=== PATIENT | male | born 1965 | race Caucasian/White ===

== ENCOUNTER 2016-11-20 20:42 | Emergency (ER) | payer OTHER ==
[~2016-11-20] VITALS: Ht 180.3 cm; Wt 99.8 kg
[2016-11-20 20:51] VITALS: BP 138/86
[2016-11-20 21:20] LABS: ABSOLUTE BASOPHIL COUNT 0.1 /CUMM (0.0-0.2); ABSOLUTE EOSINOPHIL COUNT 0.4 /CUMM (0.0-0.7); ABSOLUTE GRANULOCYTE CT 9.3 /CUMM (1.4-6.5); ABSOLUTE LYMPH COUNT 3.4 /CUMM (1.2-3.4); ABSOLUTE MONOCYTE COUNT 0.7 /CUMM (0.10-0.60); BASOPHIL % 0.5 % (0.0-2.0); EOSINOPHIL % 2.7 % (0-5); GRANULOCYTE % 67.3 % (42.2-75.2); HEMATOCRIT 48.3 % (42-52); MEAN CORPUSCULAR HGB 29.6 PG (27.0-31.0); MEAN CORPUSCULAR HGB CONC 32.9 G/DL (33.0-37.0); MEAN CORPUSCULAR VOLUME 89.9 FL (80.0-94.0); MEAN PLATELET VOLUME 7.8 FL (7.4-10.4); PLATELET COUNT 276 /CUMM (130-400); RBC DISTRIBUTION WIDTH 13.8 % (11.5-14.5); RED BLOOD CELL CT 5.37 /CUMM (4.70-6.10); WHITE BLOOD CELL COUNT 13.9 /CUMM (4.8-10.8)
--- NOTE | 2016-11-20 21:21 | ED GI/GU/ABDOMINAL COMPLAINT ---
History of Present Illness General Chief Complaint: Abdominal Pain/Flank Pain Stated Complaint: NAUSEA,UPPER ABD PAIN Source: patient, family Exam Limitations: no limitations Vital Signs & Intake/Output Vital Signs & Intake/Output Vital Signs Date Time Temp Pulse Resp B/P Pulse O2 O2 Flow FiO2 Ox Delivery Rate 11/21 2231 97 Room Air 11/20 2050 138/86 11/20 2048 96.8 73 18 135/84 99 Room Air ED Intake and Output 11/21 0000 11/20 1200 Intake Total Output Total Balance Patient 220 lb Weight Allergies Coded Allergies: clarithromycin (From BIAXIN) (GI UPSET 11/20/16) Reconcile Medications Metoclopramide HCl (Reglan) 10 MG TABLET 1 TAB PO 4 TIMES/DAY PRN NAUSEA 30 minutes before meals and bedtime Ondansetron HCl (Zofran) 4 MG TABLET 1 TAB PO Q6-8P PRN NAUSEA Triage Note: PT TO ED C/O UPPER ABD PAIN "THAT STARTS IN THE [place]" AND WRAPS TO RT BACK FOR A MONTH. +NAUSEA FOR A MONTH, WORSE OVER THE LAST 2 DAYS. DENIES V/D/UTI S/S. DOES NOT GET WORSE WITH CERTAIN FOODS. OCCASIONAL ETOH, ONE DRINK A WEEK Triage Nurses Notes Reviewed? yes Onset: Gradual Duration: intermittent Timing: remote history Quality/Severity: mild Severity Numbers: 3 Location: generalized abdomen Radiation: no radiation Prior Abdominal Problems: similar symptoms HPI: Patient is a 51-year-old male who presents to emergency room with a remote history of nausea and abdominal pain. Patient states that he has been evaluated on multiple occasions and emergency room such as [facility] twice, his primary care doctor multiple evaluations and his floor attendant on multiple evaluations IN which patient has received colonoscopy, ENDOSCOPY, CT scan OF ABDOMEN and MRI of abdomen with no significant acute findings. Patient has been complaining of paroxysmal acute onset of nausea however he states that usually symptoms arise from the smell of food and usually eating Patient denies any fever, chills, chest pain back pain emesis Patient states that he was given for her symptoms however no relief. He also does state that he was prescribed antinausea medications however he did not take this medication. He does state that the colonoscopy showed concerns of diverticulosis and 1 polyp However he does state that no significant other findings were noted with his images however he does state that there is concerns of iron deficiency. Patient 's last bowel movement was today no blood no melena noted. Patient is able tolerate by mouth Patient denies any significant alcohol use NSAID use (ANGIE RED) Past History Travel History Traveled to [place] past 21 day No Medical History Any Pertinent Medical History? see below for history Gastrointestinal: "STOMACH ISSUES" Surgical History Surgical History: non-contributory Psychosocial History What is your primary language Telugu Tobacco Use: Never used ETOH Use: occasional use Illicit Drug Use: denies illicit drug use Family History Hx Contributory? No (ANGIE RED) Review of Systems Review of Systems Constitutional: Reports: no symptoms. EENTM: Reports: no symptoms. Respiratory: Reports: no symptoms. Cardiovascular: Reports: no symptoms. GI: Reports: see HPI, abdominal pain, nausea. Denies: vomiting. Genitourinary: Reports: no symptoms. Musculoskeletal: Reports: no symptoms. Skin: Reports: no symptoms. Neurological/Psychological: Reports: no symptoms. Hematologic/Endocrine: Reports: no symptoms. Immunologic/Allergic: Reports: no symptoms. All Other Systems: Reviewed and Negative (ANGIE RED) Physical Exam Physical Exam General Appearance: no apparent distress, alert Gastrointestinal: normal bowel sounds, soft, MILD EPIGASTRIC AND LEFT UPPER QUADRANT PAIN NO REBOUND TENDERNESS NO RIGHT LOWER QUADRANT PAIN Comments: Well-developed well-nourished person in no acute distress HEENT: Normal EENT exam, extraocular motion intact, no nystagmus. Pupils equally round and reactive to light and accommodation. Nose is atraumatic. External auditory canal and Tympanic membranes clear. Pharynx normal. No swelling or edema. Neck: Supple, no lymphadenopathy, normal range of motion without pain or tenderness Back: Nontender, no CVA tenderness. Cardiovascular: Regular rate and rhythms no murmurs rubs or gallops, normal JVP Respiratory: Chest nontender. No respiratory distress.breath sounds clear to auscultation bilaterally Extremity: No edema, no calf tenderness to palpation, normal and equal pulses. Neuro: Alert oriented x3, motor sensory normal, Skin: No appreciable rash on exposed skin, skin is warm and dry. Psych: Mood and affect is normal, memory and judgment is normal. Core Measures ACS in differential dx? No Severe Sepsis Present: No Septic Shock Present: No (ANGIE RED) Progress Differential Diagnosis: AAA, AMI, appendicitis, biliary colic, bowel obstruction , colon cancer, cholecystitis, diverticulitis, epididymitis, esophageal varices, gastritis, hepatitis, hernia, hemorrhoids, ischemic bowel, inflamm bowel dis, Yanely-Nicolas tear, orchitis, pancreatitis, prostatitis, peptic ulcer, PUD/GERD, perforated viscous, pyelonephritis, SBO, testicular torsion, ureterolithiasis, urinary retention, urethritis, UTI/pyelo Plan of Care: Orders Procedure Date/time Status TROPONIN LEVEL 11/21 2043 Complete LIPASE 11/21 2043 Complete HEPATIC FUNCTION PANEL 11/21 2043 Complete CBC WITHOUT DIFFERENTIAL 11/21 2043 Complete BASIC METABOLIC PANEL 11/21 2043 Complete AMYLASE 11/21 2043 Complete EKG 11/21 2043 Active Laboratory Tests 11/20/162106: Anion Gap 12, Estimated GFR > 60, BUN/Creatinine Ratio 21.0, Glucose 106 H, Calcium 9.5, Total Bilirubin 0.5, Direct Bilirubin 0.2, AST 12 L, ALT 29, Alkaline Phosphatase 50, Troponin I < 0.01, Total Protein 7.1, Albumin 4.3, Amylase < 30 L, Lipase 126, CBC w Diff NO MAN DIFF REQ, RBC 5.37, MCV 89.9, MCH 29.6, RDW 13.8, MPV 7.8, Gran % 67.3, Lymphocytes % 24.2, Monocytes % 5.3, Eosinophils % 2.7, Basophils % 0.5, Absolute Granulocytes 9.3 H, Absolute Lymphocytes 3.4, Absolute Monocytes 0.7 H, Absolute Eosinophils 0.4, Absolute Basophils 0.1, PUBS MCHC 32.9 L Patient currently is no apparent distress nontoxic-appearing afebrile Patient has a significant history of evaluation of his complaints presenting today with unremarkable findings and was patient was strongly advised to follow- up with his gastrologist patient was given all blood work copies and EKG findings and he also requested a new primary care doctor which one was afforded to him. Upon discharge patient looks well no apparent distress and will comply with discharge instructions. I strongly advised patient to begin the prescriptions of antibiotics for his symptoms. (ANGIE RED) Initial ED EKG: none (ANGIE RED) Departure Departure Disposition: HOME OR SELF CARE Condition: Stable Clinical Impression Primary Impression: Abdominal pain Referrals: JEYSON PENNINGTON,JAZMYN Ya (PCP/Family) Additional Instructions: As discussed begin the prescription of Zofran for future nausea AND begin the prescription of Reglan for nausea BREAKTHROUGH relief. Follow-up with your floor attendant tomorrow and YOU had been given a new primary care doctor's appointment in the emergency room, go to this appointment for follow-up. If symptoms worsen return to emergency room. Prescription is waiting at [facility] pharmacy. Departure Forms: Customer Survey General Discharge Information Prescriptions: Current Visit Scripts Ondansetron HCl (Zofran) 1 TAB PO Q6-8P PRN NAUSEA #20 TAB Metoclopramide HCl (Reglan) 1 TAB PO 4 TIMES/DAY PRN NAUSEA #20 TAB 30 minutes before meals and bedtime (ANGIE RED) PA/DIRECTOR [facility] Co-Sign Statement Statement: ED Attending supervision documentation- [] I saw and evaluated the patient. I have also reviewed all the pertinent lab results and diagnostic results. I agree with the findings and the plan of care as documented in the PA's/DIRECTOR CPG's documentation. [x] I have reviewed the ED Record and agree with the PA's/DIRECTOR [facility]'s documentation. [] Additions or exceptions (if any) to the PAs/DIRECTOR [facility]'s note and plan are summarized below: [] (SAVANNAH PENNINGTON,RADHA Crowe)
[2016-11-20] MEDS ORDERED: ZOFRAN4 M2 PO (22:19)
[2016-11-20] MEDS ORDERED: REGLAN10 M1 PO (22:19)
== END 2016-11-20 22:31 ==
LOC: ERH 20:42
PROVIDERS: Pediatrics
DX: R10.13 Epigastric pain (principal); R10.12 Left upper quadrant pain
CPT/HCPCS: 93005; 93010